=== PATIENT | male | born 1995 | race Caucasian/White ===

== ENCOUNTER 2025-07-22 11:04 | Emergency (ER) | payer OTHER ==
[~2025-07-22] VITALS: Ht 180.3 cm; Wt 80.5 kg
[2025-07-22 11:26] VITALS: TEMP 97.7
[2025-07-22 12:05] LABS: PLATELET COUNT (AUTO) 249 K/uL (150-450); RED BLOOD CELL COUNT(AUTO) 4.34 MIL/uL (4.50-5.90); RED CELL DISTRIBUTION WIDTH 14.0 % (11.5-14.5); WHITE BLOOD COUNT (AUTO) 5.8 K/uL (4.5-11.0)
[2025-07-22 12:10] LABS: CALCIUM, TOTAL 8.3 mg/dL (8.8-10.5); CREATININE 0.74 mg/dL (0.60-1.30); GLOMERULAR FILTR. RATE CALC > 60 mL/min (>60); GLUCOSE,RANDOM 86 mg/dL (70-110); SODIUM SERUM 141 mmol/L (136-145); UREA NITROGEN, BLOOD 13 mg/dL (7-18)
[2025-07-22 12:16] LABS: COVID AG,FIA SOURCE NASAL SWAB
[2025-07-22 13:00] VITALS: BP 103/66; PULSE 59; RESP 16; O2SAT 98
[2025-07-22 13:02] LABS: SARS-COV2 (COVID) ANTIGEN,FIA Negative (Negative)
[2025-07-22 13:40] LABS: APPEARANCE,URINE CLEAR (CLEAR); GLUCOSE, URINE (UA) NEGATIVE (NEGATIVE); LEUKOCYTE ESTERASE ,URINE NEGATIVE (NEGATIVE); NITRATE,URINE NEGATIVE (NEGATIVE); OCCULT BLOOD,URINE NEGATIVE (NEGATIVE); PH,URINE DRUG SCREEN 5.5 (5.0-8.0); SPECIFIC GRAVITIY, URINE 1.011 (1.003-1.030)
[2025-07-22 13:47] LABS: ALCOHOL, URINE DRUG SCREEN NEGATIVE (NEGATIVE); AMPHET/METH SCREEN,URINE NEGATIVE (NEGATIVE); BARBITURATE SCREEN, URINE NEGATIVE (NEGATIVE); CANNABINOID SCREEN,URINE POSITIVE (NEGATIVE); COCAINE SCREEN,URINE NEGATIVE (NEGATIVE); METHADONE SCREEN, URINE NEGATIVE (NEGATIVE)
== END 2025-07-22 13:56 | disposition home or self-care (01) ==
LOC: EMS 11:04
DX: F29 Unspecified psychosis not due to a substance or known physiological condition (principal); F51.4 Sleep terrors [night terrors]; F12.90 Cannabis use, unspecified, uncomplicated; F32.A Depression, unspecified; Z20.822 Contact with and (suspected) exposure to COVID-19
CPT/HCPCS: 99285; 87426; 80048; 81003; 85025; 36415; 80307; G0480